=== PATIENT | female | born 1975 | race Caucasian/White ===

== ENCOUNTER 2018-03-23 05:12 | Emergency (ER) | payer OTHER ==
[~2018-03-23] VITALS: Ht 154.9 cm; Wt 63.5 kg
[2018-03-23 05:17] VITALS: BP 131/87
--- NOTE | 2018-03-23 05:17 | ED.ADGEN ---
Past History Past Medical History: No Pertinent History, Cancer, DVT Past Surgical History: No Surgical History Smoking: Less than 1pk/day Alcohol Use: Occasionally Drug Use: None Adult General Chief Complaint Chief Complaint ".. I ve been vomiting...".. " It started after a cheese enchilada,,, I did have an alcohol drink last night,,, and I ve been vomiting ever since..." HPI HPI Patient is a 43 year old female who presents with above hx and complaints of vomiting for past day after eating [place] food. Pt. denies and other diet changes or exposures. Pt. denies any travel or specific ill contacts. Months ago pt. reduced her intake of meats. Pt. also stopped smoking. Pt. has schedule apt. 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 Pt. has generalized abd. pain from dry heaving. No hx of diarrhea or dark stools. Pt. normally follows at [facility]. The is a family hx of gallbladder dz that required surgery with her mother at her current age. Review of Systems Review of Systems Constitutional: Denies fever or chills [] Eyes: Denies change in visual acuity, redness, or eye pain [] HENT: Denies nasal congestion or sore throat [] Respiratory: Denies cough or shortness of breath [] Cardiovascular: No additional information not addressed in HPI [] GI: Complains of abdominal pain, nausea, vomiting,. Denies bloody stools or diarrhea [] : Denies dysuria or hematuria [] Musculoskeletal: Denies back pain or joint pain [] Integument: Denies rash or skin lesions [] Neurologic: Denies headache, focal weakness or sensory changes [] Endocrine: Denies polyuria or polydipsia [] All other systems were reviewed and found to be within normal limits, except as documented in this note. Family History Family History Gallbladder dz Current Medications Current Medications Current Medications Medications (Trade) Dose Ordered Sig/Reed Start Time Stop Time Status Last Admin Dose Admin Famotidine (Pepcid Vial) 20 mg 1X ONCE 03/23/18 06:00 03/23/18 06:01 DC 03/23/18 06:00 20 MG Lactated Ringer's 1,000 ml @ 1,000 mls/hr Q1H 03/23/18 06:00 03/23/18 06:59 DC 03/23/18 06:00 1,000 MLS/HR Magnesium Hydroxide (Milk Of Magnesia) 2,400 mg 1X ONCE 03/23/18 06:30 03/23/18 06:31 DC Ondansetron HCl (Zofran) 8 mg 1X ONCE 03/23/18 06:30 03/23/18 06:31 DC 03/23/18 06:20 4 MG See Nursing for home meds Allergies Allergies Allergies Coded Allergies Type Severity Reaction Last Updated Verified Erythromycin Base Allergy 10/31/13 Yes codeine Allergy 10/31/13 Yes Physical Exam Physical Exam Constitutional: Well developed, well nourished, in acute distress, non-toxic appearance. [] HENT: Normocephalic, atraumatic, bilateral external ears normal, oropharynx moist, no oral exudates, nose normal. [] Eyes: PERRLA, EOMI, conjunctiva normal, no discharge. [] Neck: Normal range of motion, no tenderness, supple, no stridor. [] Cardiovascular:Heart rate regular rhythm, no murmur [] Lungs & Thorax: Bilateral breath sounds equal at apex on auscultation [] Abdomen: Bowel sounds decreased, soft, generalized tenderness, no masses, no pulsatile masses. Declines rectal and pelvic exam at this time- actively vomiting. There was some rebound to right upper and epigastric areas Skin: Warm, dry, no erythema, no rash. [] Back: No tenderness, no CVA tenderness. [] Extremities: No tenderness, no cyanosis, no clubbing, ROM intact, no edema. [] Neurologic: Alert and oriented X 3, normal motor function, normal sensory function, no focal deficits noted. [] Psychologic: Affect Anxious, judgement normal, mood normal. [] Current Patient Data Vital Signs Vital Signs Date Time Temp Pulse Resp B/P (MAP) Pulse Ox O2 Delivery O2 Flow Rate FiO2 03/23/18 05:17 97.9 51 16 99 Room Air Lab Results Laboratory Tests Test 03/23/18 05:29 White Blood Count 8.9 x10^3/uL (4.0-11.0) Red Blood Count 5.06 x10^6/uL (3.50-5.40) Hemoglobin 14.6 g/dL (12.0-15.5) Hematocrit 43.7 % (36.0-47.0) Mean Corpuscular Volume 86 fL (79-100) Mean Corpuscular Hemoglobin 29 pg (25-35) Mean Corpuscular Hemoglobin Concent 33 g/dL (31-37) Red Cell Distribution Width 13.6 % (11.5-14.5) Platelet Count 272 x10^3/uL (140-400) Neutrophils (%) (Auto) 64 % (31-73) Lymphocytes (%) (Auto) 26 % (24-48) Monocytes (%) (Auto) 8 % (0-9) Eosinophils (%) (Auto) 2 % (0-3) Basophils (%) (Auto) 1 % (0-3) Neutrophils # (Auto) 5.7 x10^3uL (1.8-7.7) Lymphocytes # (Auto) 2.3 x10^3/uL (1.0-4.8) Monocytes # (Auto) 0.7 x10^3/uL (0.0-1.1) Eosinophils # (Auto) 0.1 x10^3/uL (0.0-0.7) Basophils # (Auto) 0.1 x10^3/uL (0.0-0.2) Prothrombin Time 10.2 SEC (9.4-11.4) Prothrombin Time INR 1.0 (0.9-1.1) PTT 26 SEC (23-33) Urine Collection Type Unknown Urine Color Yellow Urine Clarity Clear Urine pH 8.5 Urine Specific [place] 1.015 Urine Protein Neg (NEG-TRACE) Urine Glucose (UA) Neg mg/dL (NEG) Urine Ketones (Stick) Neg mg/dL (NEG) Urine Blood Neg (NEG) Urine Nitrite Neg (NEG) Urine Bilirubin Neg (NEG) Urine Urobilinogen Dipstick 0.2 mg/dL (0.2 mg/dL) Urine Leukocyte Esterase Neg (NEG) Urine RBC 0 /HPF (0-2) Urine WBC Rare /HPF (0-4) Urine Squamous Epithelial Cells Mod /LPF Urine Bacteria 0 /HPF (0-FEW) Sodium Level 141 mmol/L (136-145) Potassium Level 3.9 mmol/L (3.5-5.1) Chloride Level 104 mmol/L (98-107) Carbon Dioxide Level 28 mmol/L (21-32) Anion Gap 9 (6-14) Blood Urea Nitrogen 8 mg/dL (7-20) Creatinine 1.0 mg/dL (0.6-1.0) Estimated GFR (Cockcroft-Gault) 61.1 Glucose Level 93 mg/dL (70-99) Calcium Level 9.3 mg/dL (8.5-10.1) Total Bilirubin 0.5 mg/dL (0.2-1.0) Direct Bilirubin 0.1 mg/dL (0.0-0.2) Aspartate Amino Transferase (AST) 16 U/L (15-37) Alanine Aminotransferase (ALT) 23 U/L (14-59) Alkaline Phosphatase 55 U/L (46-116) Troponin I Quantitative < 0.017 ng/mL (0-0.055) Total Protein 7.1 g/dL (6.4-8.2) Albumin 4.0 g/dL (3.4-5.0) Lipase 119 U/L (73-393) EKG EKG [] Radiology/Procedures Radiology/Procedures Abdomen shows no acute cardiopulmonary findings. No free air under diaphragm. Does have increased stool throughout the colon. Nonspecific bowel gas pattern.[] Course & Med Decision Making Course & Med Decision Making Pertinent Labs and Imaging studies reviewed. (See chart for details) Patient to remain on a clear fluid diet for the next 48 hours. No solids. No milk products. Allow bowel rest. Patient take Zantac 50 mg twice a day. Patient take Zofran 8 mg 4 times a day as needed for nausea and vomiting. Patient take [id number] Tylenol and ibuprofen for discomfort. Patient to follow-up primary care. May need further evaluation for biliary colic. Patient return if any concerns. Noted at patient report marked relief of pain and symptoms of nausea. [] Final Impression Final Impression 1. Nausea and vomiting 2. Gastritis 3. Biliary colic 4. History given of cervical dysplasia[] Dragon Disclaimer Dragon Disclaimer This electronic medical record was generated, in whole or in part, using a voice recognition dictation system. IRA BROWNLEE MD Mar 23, 2018 05:17
[2018-03-23 05:50] LABS: BASO # 0.1 x10^3/uL (0.0-0.2); BASO % 1 % (0-3); EOS # 0.1 x10^3/uL (0.0-0.7); EOS % 2 % (0-3); HEMATOCRIT 43.7 % (36.0-47.0); HEMOGLOBIN 14.6 g/dL (12.0-15.5); LYMPH # 2.3 x10^3/uL (1.0-4.8); LYMPH % 26 % (24-48); MEAN CORPUSCULAR HEMOGLOBIN 29 pg (25-35); MEAN CORPUSCULAR HGB CONC 33 g/dL (31-37); MEAN CORPUSCULAR VOLUME 86 fL (79-100); MONO # 0.7 x10^3/uL (0.0-1.1); MONO % 8 % (0-9); NEUT # 5.7 x10^3uL (1.8-7.7); NEUT % 64 % (31-73); PLATELET COUNT 272 x10^3/uL (140-400); RED BLOOD COUNT 5.06 x10^6/uL (3.50-5.40); RED CELL DISTRIBUTION WIDTH 13.6 % (11.5-14.5); WHITE BLOOD COUNT 8.9 x10^3/uL (4.0-11.0)
[2018-03-23 05:54] LABS: BACTERIA,URINE 0 /HPF (0-FEW); BILIRUBIN,URINE NEG (NEG); CLARITY,URINE CLEAR; COLOR,URINE YELLOW; GLUCOSE,URINE NEG (NEG); NITRITE,URINE NEG (NEG); RBC,URINE 0 /HPF (0-2); SQUAMOUS EPITHELIAL CELL,UR MOD /LPF; UROBILINOGEN,URINE 0.2 mg/dL (0.2 mg/dL); WBC,URINE RARE /HPF (0-4)
[2018-03-23] MEDS ORDERED: ONDANSETRON PF 4 MG/2 ML VIAL. IV ONE ×2 (06:00→06:30)
[2018-03-23] MEDS ORDERED: FAMOTIDINE 20 MG/2 ML VIAL IVP ONE (06:00)
[2018-03-23] MEDS ORDERED: IV RINGERS SOLUTION,LACTATED 1,000 ML IV SCH (06:00)
[2018-03-23 06:04] LABS: CALCIUM 9.3 mg/dL (8.5-10.1); DIRECT BILIRUBIN 0.1 mg/dL (0.0-0.2); GFR 61.1; POTASSIUM 3.9 mmol/L (3.5-5.1); TOTAL BILIRUBIN 0.5 mg/dL (0.2-1.0); TOTAL PROTEIN 7.1 g/dL (6.4-8.2)
[2018-03-23] MEDS ORDERED: MAGNESIUM HYDROXIDE 2,400 MG/30 ML ORAL.SUSP. PO ONE (06:30)
--- NOTE | 2018-03-23 07:41 | RAD ---
Acute abdomen series with chest, 3 views, 03/23/2018: HISTORY: Nausea and vomiting with cramping There is a moderate amount of stool in the colon. Gas is present in large and small bowel in a nonspecific pattern. No free air is seen in the abdomen. There is no evidence organomegaly. A lower pelvic calcification on the left is probably a phlebolith. The heart size is normal. The lungs are clear. There is no evidence of pleural fluid. IMPRESSION: No acute abdominal abnormality is detected. Electronically signed by: Dez Huynh MD (03/23/2018 7:39 AM) [facility]
== END 2018-03-23 06:35 | disposition home or self-care (01) ==
LOC: ER 05:12
DX: K29.70 Gastritis, unspecified, without bleeding (principal); K80.50 Calculus of bile duct without cholangitis or cholecystitis without obstruction; K59.00 Constipation, unspecified; F17.200 Nicotine dependence, unspecified, uncomplicated; Z88.1 Allergy status to other antibiotic agents; Z88.5 Allergy status to narcotic agent
CPT/HCPCS: 36415; 74022; 80048; 80076; 81001; 83690; 84484; 85025; 85610; 85730; 96361; 96374; 96375; 99284; J2405; J7120; S0028

== ENCOUNTER 2018-04-23 00:26 | Emergency (ER) | payer OTHER ==
--- NOTE | 2018-04-23 00:29 | ED.ADGEN ---
Past History Past Medical History: No Pertinent History, Cancer, DVT, Other Past Surgical History: Other Smoking: Less than 1pk/day Alcohol Use: None Drug Use: None Adult General Chief Complaint Chief Complaint " I got heart burn that will not quit.. and some headache... and dizzy...nausea.. "... " I just had a cone bx of my cervix on Apr.14..for cancer of cervix.. .. ".. " I have just not bounced back like I should...".." I usually work out 5 x week.. but I was on the treadmill and got really weak and dizzy...." HPI HPI Patient is a 43 year old female who presents with above hx and complaints of nausea, malaise, myalgia, dizziness, cephalgia, chest tightness, neck pain and discomfort. She recently underwent cone biopsy of cervix for abnormal PAP. Patient denies any changes in meds. Patient denies any travel or specific ill contacts. Patient normally healthy. No previous history of cardiac disease. No previous history of hypertension. Patient has been following Dr. Cuellar primary and Dr. Antonio [facility]. . Review of Systems Review of Systems Constitutional: Denies fever or chills [] Eyes: Denies change in visual acuity, redness, or eye pain [] HENT: Denies nasal congestion or sore throat [] Respiratory: Dyspnea Cardiovascular: No additional information not addressed in HPI [] GI: Epigastric abdominal pain, nausea. Denies vomiting, bloody stools or diarrhea []Constipation : Denies dysuria or hematuria [] Musculoskeletal: Denies back pain or joint pain [] Integument: Denies rash or skin lesions [] Neurologic: Hx. headache, generalized weakness Endocrine: Denies polyuria or polydipsia [] All other systems were reviewed and found to be within normal limits, except as documented in this note. Family History Family History Non-contributory Current Medications Current Medications Current Medications Medications (Trade) Dose Ordered Sig/Reed Start Time Stop Time Status Last Admin Dose Admin Aspirin (Children'S Aspirin) 324 mg 1X ONCE 04/23/18 02:15 04/23/18 03:31 DC 04/23/18 02:38 324 MG Famotidine (Pepcid) 20 mg 1X ONCE 04/23/18 02:15 04/23/18 03:31 DC 04/23/18 02:36 20 MG Lactated Ringer's 1,000 ml @ 1,000 mls/hr Q1H 04/23/18 02:10 04/23/18 03:30 DC 04/23/18 02:39 1,000 MLS/HR Magnesium Hydroxide (Milk Of Magnesia) 2,400 mg 1X ONCE 04/23/18 02:15 04/23/18 03:30 DC 04/23/18 04:51 2,400 MG Oxycodone/ Acetaminophen (Percocet 5/325) 2 tab 1X ONCE 04/23/18 03:30 04/23/18 03:31 DC 04/23/18 04:54 2 TAB See Nursing for home meds Allergies Allergies Allergies Coded Allergies Type Severity Reaction Last Updated Verified Erythromycin Base Allergy 10/31/13 Yes codeine Allergy 10/31/13 Yes Physical Exam Physical Exam Constitutional: Well developed, well nourished, in moderately acute distress, non-toxic appearance. [] HENT: Normocephalic, atraumatic, bilateral external ears normal, oropharynx moist, no oral exudates, nose normal. Eyes: PERRLA, EOMI, conjunctiva normal, no discharge. [] Neck: Normal range of motion, , supple, no stridor. []Mid line cervical neck tenderness. Cardiovascular:Bradycardia Heart rate regular rhythm, no murmur [] Lungs & Thorax: Bilateral breath sounds clear to auscultation [] Abdomen: Bowel sounds normal, soft, epigastric tenderness, no masses, no pulsatile masses. [] Distended. Skin: Warm, dry, no erythema, no rash. [] Back: No tenderness, no CVA tenderness. [] Extremities: No tenderness, no cyanosis, no clubbing, ROM intact, no edema. [] No cording noted. Neurologic: Alert and oriented X 3, normal motor function, normal sensory function, no focal deficits noted. [] Psychologic: Affect anxious, judgement normal, mood normal. [] Current Patient Data Vital Signs Vital Signs Date Time Temp Pulse Resp B/P (MAP) Pulse Ox O2 Delivery O2 Flow Rate FiO2 04/23/18 04:54 18 99 Room Air Lab Results Laboratory Tests Test 04/23/18 01:34 04/23/18 01:50 8/10/18 02:25 Urine Collection Type Unknown Urine Color Yellow Urine Clarity Clear Urine pH 6.0 Urine Specific [place] <=1.005 Urine Protein Neg (NEG-TRACE) Urine Glucose (UA) Neg mg/dL (NEG) Urine Ketones (Stick) Neg mg/dL (NEG) Urine Blood Neg (NEG) Urine Nitrite Neg (NEG) Urine Bilirubin Neg (NEG) Urine Urobilinogen Dipstick 0.2 mg/dL (0.2 mg/dL) Urine Leukocyte Esterase Neg (NEG) Urine RBC 0 /HPF (0-2) Urine WBC Rare /HPF (0-4) Urine Squamous Epithelial Cells None /LPF Urine Bacteria 0 /HPF (0-FEW) Urine Test Negative (NEG) Urine Opiates Screen Neg (NEG) Urine Methadone Screen Neg (NEG) Urine Barbiturates Neg (NEG) Urine Phencyclidine Screen Neg (NEG) Urine Amphetamine/Methamphetamine Neg (NEG) Urine Benzodiazepines Screen Neg (NEG) Urine Cocaine Screen Neg (NEG) Urine Cannabinoids Screen Neg (NEG) Urine Ethyl Alcohol Neg (NEG) White Blood Count 10.4 x10^3/uL (4.0-11.0) Red Blood Count 4.81 x10^6/uL (3.50-5.40) Hemoglobin 14.0 g/dL (12.0-15.5) Hematocrit 40.7 % (36.0-47.0) Mean Corpuscular Volume 84 fL (79-100) Mean Corpuscular Hemoglobin 29 pg (25-35) Mean Corpuscular Hemoglobin Concent 34 g/dL (31-37) Red Cell Distribution Width 13.1 % (11.5-14.5) Platelet Count 241 x10^3/uL (140-400) Neutrophils (%) (Auto) 55 % (31-73) Lymphocytes (%) (Auto) 29 % (24-48) Monocytes (%) (Auto) 12 % (0-9) H Eosinophils (%) (Auto) 4 % (0-3) H Basophils (%) (Auto) 1 % (0-3) Neutrophils # (Auto) 5.6 x10^3uL (1.8-7.7) Lymphocytes # (Auto) 3.0 x10^3/uL (1.0-4.8) Monocytes # (Auto) 1.2 x10^3/uL (0.0-1.1) H Eosinophils # (Auto) 0.4 x10^3/uL (0.0-0.7) Basophils # (Auto) 0.1 x10^3/uL (0.0-0.2) Sodium Level 138 mmol/L (136-145) Potassium Level 3.7 mmol/L (3.5-5.1) Chloride Level 103 mmol/L (98-107) Carbon Dioxide Level 27 mmol/L (21-32) Anion Gap 8 (6-14) Blood Urea Nitrogen 10 mg/dL (7-20) Creatinine 0.9 mg/dL (0.6-1.0) Estimated GFR (Cockcroft-Gault) 69.0 Glucose Level 86 mg/dL (70-99) Calcium Level 9.4 mg/dL (8.5-10.1) Magnesium Level 2.1 mg/dL (1.8-2.4) Total Bilirubin 0.3 mg/dL (0.2-1.0) Direct Bilirubin 0.1 mg/dL (0.0-0.2) Aspartate Amino Transferase (AST) 22 U/L (15-37) Alanine Aminotransferase (ALT) 40 U/L (14-59) Alkaline Phosphatase 59 U/L (46-116) Creatine Kinase 27 U/L (26-192) Creatine Kinase MB (Mass) < 0.5 ng/mL (0.0-3.6) Creatine Kinase MB Relative Index 1.9 % (0-4) Troponin I Quantitative < 0.017 ng/mL (0-0.055) [id number] Natriuretic Peptide 67 pg/mL (0-124) Total Protein 7.6 g/dL (6.4-8.2) Albumin 3.8 g/dL (3.4-5.0) Lipase 151 U/L (73-393) Prothrombin Time 10.1 SEC (9.4-11.4) Prothrombin Time INR 1.0 (0.9-1.1) PTT 26 SEC (23-33) D-Dimer (Hedy) 0.46 mg/L (0.00-0.50) EKG EKG My interpretation of EKG shows sinus rate of 64, non-specifc anterolateral changes. [] My interpretation of second EKG shows a sinus bradycardia 54 bpm. Some nonspecific car onto her changes anterior septal region. But no findings acute STEMI with contralateral changes. Radiology/Procedures Radiology/Procedures Interpretation CT of head shows no shift, mass, edema, bleed, or fracture. CT neck shows some mild degenerative changes. Degenerative joint and disc changes particularly in C4 and 5. I interpretation of chest x-ray and abd. films shows no acute cardiopulmonary findings. No free air in the diaphragm. Abdomen film shows nonspecific bowel gas pattern. Does have increased stool throughout the abdomen. [] Course & Med Decision Making Course & Med Decision Making Pertinent Labs and Imaging studies reviewed. (See chart for details). Discussed options of continue eval. Pt. declines admit at this time. Will follow up with primary and review ED labs and x-rays. Consider EGD and Out pt. stress testing. Zantac 150 bid. Must follow up . Return if any concerns. Keep follow up with [facility] and Primary [] Final Impression Final Impression 1. Viral syndrome 2. Dizzy 3. Bradycardia 4. Constipation 5. GERD- Complaints 6. Near Syncope 7. Atypical Chest pain/ discomfort [] Dragon Disclaimer Dragon Disclaimer This electronic medical record was generated, in whole or in part, using a voice recognition dictation system. IRA BROWNLEE MD Apr 23, 2018 00:28
[2018-04-23] MEDS ORDERED: IV RINGERS SOLUTION,LACTATED 1,000 ML IV SCH (02:10)
[2018-04-23] MEDS ORDERED: MAGNESIUM HYDROXIDE 2,400 MG/30 ML ORAL.SUSP. PO ONE (02:15)
[2018-04-23] MEDS ORDERED: FAMOTIDINE 20 MG TABLET PO ONE (02:15)
[2018-04-23] MEDS ORDERED: ASPIRIN 81 MG TAB.CHEW PO ONE (02:15)
[2018-04-23 02:27] LABS: BASO # 0.1 x10^3/uL (0.0-0.2); BASO % 1 % (0-3); EOS # 0.4 x10^3/uL (0.0-0.7); EOS % 4 % (0-3); HEMATOCRIT 40.7 % (36.0-47.0); LYMPH % 29 % (24-48); MEAN CORPUSCULAR HEMOGLOBIN 29 pg (25-35); MEAN CORPUSCULAR HGB CONC 34 g/dL (31-37); MEAN CORPUSCULAR VOLUME 84 fL (79-100); MONO # 1.2 x10^3/uL (0.0-1.1); MONO % 12 % (0-9); NEUT # 5.6 x10^3uL (1.8-7.7); NEUT % 55 % (31-73); PLATELET COUNT 241 x10^3/uL (140-400); RED BLOOD COUNT 4.81 x10^6/uL (3.50-5.40); RED CELL DISTRIBUTION WIDTH 13.1 % (11.5-14.5); WHITE BLOOD COUNT 10.4 x10^3/uL (4.0-11.0)
[2018-04-23 02:32] LABS: BARBITURATES NEG (NEG); BENZODIAZEPINES NEG (NEG); CANNABINOIDS NEG (NEG); COCAINE NEG (NEG); METHADONE NEG (NEG); OPIATES NEG (NEG); PHENCYCLIDINE NEG (NEG)
[2018-04-23 02:35] LABS: BACTERIA,URINE 0 /HPF (0-FEW); BILIRUBIN,URINE NEG (NEG); CLARITY,URINE CLEAR; COLOR,URINE YELLOW; GLUCOSE,URINE NEG (NEG); NITRITE,URINE NEG (NEG); RBC,URINE 0 /HPF (0-2); U PREG PATIENT NEGATIVE (NEG); UROBILINOGEN,URINE 0.2 mg/dL (0.2 mg/dL); WBC,URINE RARE /HPF (0-4)
[2018-04-23 02:39] LABS: AMPHETAMINE/METHAMPHETAMINE NEG (NEG)
[2018-04-23 02:41] LABS: ALBUMIN 3.8 g/dL (3.4-5.0); ALK PHOS 59 U/L (46-116); ALT (SGPT) 40 U/L (14-59); ANION GAP 8 (6-14); AST (SGOT) 22 U/L (15-37); BLOOD UREA NITROGEN 10 mg/dL (7-20); CALCIUM 9.4 mg/dL (8.5-10.1); CARBON DIOXIDE 27 mmol/L (21-32); CHLORIDE 103 mmol/L (98-107); CREATININE 0.9 mg/dL (0.6-1.0); DIRECT BILIRUBIN 0.1 mg/dL (0.0-0.2); GLUCOSE 86 mg/dL (70-99); LIPASE 151 U/L (73-393); MAGNESIUM 2.1 mg/dL (1.8-2.4); POTASSIUM 3.7 mmol/L (3.5-5.1); SODIUM 138 mmol/L (136-145); TOTAL BILIRUBIN 0.3 mg/dL (0.2-1.0); TOTAL PROTEIN 7.6 g/dL (6.4-8.2)
[2018-04-23] MEDS ORDERED: oxyCODONE/APAP 5/325 1 TAB TABLET PO ONE (03:30)
[2018-04-23] MEDS ORDERED: ONDA8TAB12 PO (04:23)
[2018-04-23] MEDS ORDERED: OXYC-323 PO (04:23)
[2018-04-23] MEDS ORDERED: RANI150T21 PO (04:23)
--- NOTE | 2018-04-23 04:48 | RAD ---
EXAM: 1. CT HEAD WITHOUT CONTRAST. 2. CT CERVICAL SPINE WITHOUT CONTRAST. HISTORY: Headache. Fall. TECHNIQUE: Computed tomography of the head and cervical spine was performed without intravenous contrast. COMPARISON: None. FINDINGS: There is no intracranial hemorrhage. Munoz-white differentiation is preserved. The ventricles are normal in size and position. The visualized paranasal sinuses appear clear. The orbits are unremarkable. The temporal bones are unremarkable. The calvarium reveals no suspicious lesions. Reversal of the cervical lordosis is likely positional. The craniocervical junction is unremarkable. No fractures are identified. Intervertebral disc heights are maintained. There is no prevertebral soft tissue swelling. There is a small posterior disc bulge at C4-5. There is no central canal stenosis or neural foraminal stenosis. IMPRESSION: 1. No acute intracranial findings. 2. No cervical fracture or malalignment. *One or more of the following individualized dose reduction techniques were utilized for this examination: 1. Automated exposure control. 2. Adjustment of the mA and/or kV according to patient size. 3. Use of iterative reconstruction technique. Electronically signed by: Veronica Montes De Oca MD (04/23/2018 4:44 AM) [facility]
--- NOTE | 2018-04-23 04:59 | RAD ---
EXAM: CHEST 1 VIEW. HISTORY: Chest pain. COMPARISON: None. FINDINGS: A frontal view of the chest is obtained. There are no confluent infiltrates. There is no pneumothorax or pleural effusion. The heart is not enlarged. IMPRESSION: 1. No confluent infiltrates. Electronically signed by: Veronica Montes De Oca MD (04/23/2018 4:56 AM) [facility]
[2018-04-23 05:28] VITALS: BP 116/60
[2018-04-23 13:22] LABS: THYROID STIM HORMONE (TSH) 1.678 uIU/mL (0.358-3.740)
--- NOTE | 2018-04-23 22:32 | EKG ---
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
--- NOTE | 2018-04-24 06:28 | EKG ---
[address] [address] Test Date: 2018-04-23 Test Time: 01:30:58 Pat Name: RYAN VAZQUEZ Department: Room: Gender: F Resolution Manager: : 1975 Requested By: IRA BROWNLEE Order Number: [id number] Reading MD: Measurements Intervals [place] Rate: 64 P: 55 ME: 176 QRS: 84 QRSD: 82 T: 59 QT: 422 QTc: 435 Interpretive Statements SINUS RHYTHM LOW LIMB LEAD VOLTAGE QRS(T) CONTOUR ABNORMALITY CONSIDER ANTEROLATERAL MYOCARDIAL DAMAGE POSSIBLY ABNORMAL ECG RI6.01 Unconfirmed report No previous ECG available for comparison
== END 2018-04-23 05:35 | disposition home or self-care (01) ==
LOC: ER 00:26
DX: R42 Dizziness and giddiness (principal); B34.9 Viral infection, unspecified; K59.00 Constipation, unspecified; K21.9 Gastro-esophageal reflux disease without esophagitis; R55 Syncope and collapse; R07.89 Other chest pain; R00.1 Bradycardia, unspecified; F17.200 Nicotine dependence, unspecified, uncomplicated; Z86.718 Personal history of other venous thrombosis and embolism; Z88.1 Allergy status to other antibiotic agents; Z88.5 Allergy status to narcotic agent
CPT/HCPCS: 36415; 70450; 71046; 72125; 80048; 80061; 80076; 80307; 81001; 81025; 82553; 83690; 83735; 83880; 84443; 84484; 85025; 85379; 85610; 85730; 93005; 96360; 96361; 99285; J7120; G0479

== ENCOUNTER 2020-01-07 05:37 | Emergency (ER) | payer OTHER ==
[~2020-01-07] VITALS: Ht 154.9 cm; Wt 73.4 kg
[~2020-01-07 05:37] MED LIST: ONDA8TAB12 PO; OXYC1TAB15 PO; RANI-376 PO
--- NOTE | 2020-01-07 05:55 | PHYS DOC ---
Past History Past Medical History: No Pertinent History, Cancer, DVT, GERD, Other Past Surgical History: Other Smoking: Less than 1pk/day Alcohol Use: Rarely Drug Use: None General Adult EDM: Chief Complaint: NAUSEA/VOMITING/DIARRHEA HPI: HPI: ".. We ate Mc D last night.. about 9.. my ate the same thing.. .. but he did not get sick.. but since mid night.. I ve been really sick.. vomiting.. and diarrhea.. I vomit.. then I have a stool... then I vomit.. .then I have a stool..... " Patient is a 45 year old female who presents with above hx and complaints of vomiting 4 x and Diarrhea x 5 since mid night. Patient reportedly ate Rashid's at approximate 2100 hours. ate the same meal but did not get sick. Patient denies any travel outside the [place] area. Patient denies any history of trauma. Patient denies any specific ill contacts. No history immunosuppression. 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 Patient does smoke. Patient only follows with Dr. Fischer. Patient did not get flu vaccination this season. Review of Systems: Review of Systems: Constitutional: Denies fever or chills Eyes: Denies change in visual acuity HENT: Denies nasal congestion or sore throat Respiratory: Denies cough or shortness of breath Cardiovascular: Denies chest pain or edema GI: Complaints of abdominal pain, nausea, vomiting, and diarrhea : Denies dysuria Musculoskeletal: Denies back pain or joint pain Integument: Denies rash Neurologic: Denies headache, focal weakness or sensory changes Endocrine: Denies polyuria or polydipsia Lymphatic: Denies swollen glands Psychiatric: Denies depression or anxiety Heart Score: HEART Score for Chest Pain: HEART Score for Chest Pain Response (Comments) Value History Slighlty/Non-Suspicious 0 Total 0 Risk Factors: Risk Factors: DM, Current or recent (<one month) smoker, HTN, HLP, family history of CAD, obesity. Risk Scores: Score 0 - 3: 2.5% MACE over next 6 weeks - Discharge Home Score 4 - 6: 20.3% MACE over next 6 weeks - Admit for Clinical Observation Score 7 - 10: 72.7% MACE over next 6 weeks - Early Invasive Strategies Family History: Family History: Noncontributory to presentation Current Medications: Current Meds: See nursing for home meds Allergies: Allergies: Allergies Coded Allergies Type Severity Reaction Last Updated Verified Erythromycin Base Allergy 10/31/13 Yes codeine Allergy 10/31/13 Yes Physical Exam: PE: Constitutional: Moderate acute distress, non-toxic appearance. [] HENT: Normocephalic, atraumatic, bilateral external ears normal, oropharynx dry, no oral exudates, nose normal. [] Eyes: PERRLA, EOMI, conjunctiva normal, no discharge. [] Neck: Normal range of motion, no tenderness, supple, no stridor. [] Cardiovascular: Bradycardia heart rate regular rhythm, no murmur [] Lungs & Thorax: Bilateral breath sounds equal at apex with few scattered wheezes on auscultation [] Abdomen: Bowel sounds hyperactive l, soft, generalized tenderness, no masses, no pulsatile masses. [] No focal areas or rebound Skin: Warm, dry, no erythema, no rash. [] Back: No tenderness, no CVA tenderness. [] Extremities: No tenderness, no cyanosis, no clubbing, ROM intact, no edema. [] No psoas sign. Neurologic: Alert and oriented X 3, normal motor function, normal sensory function, no focal deficits noted. [] Psychologic: Affect anxious, judgement normal, mood normal. [] EKG: EKG: My interpretation EKG shows a sinus rhythm at 63 bpm. Low voltage. Slightly prolonged QT interval at 500 ms QTc interval is 515 ms. No findings of acute STEMI with contralateral changes. [] Radiology/Procedures: Radiology/Procedures: [][address] [address] IMAGING REPORT Signed PATIENT: RYAN VAZQUEZ ACCOUNT: [id number] : 1975 LOCATION: ER AGE: 45 SEX: F EXAM STATUS: REG ER ORD. PHYSICIAN: IRA BROWNLEE MD REASON: nv,cp PROCEDURE: ACUTE ABDOMEN SERIES INDICATION: Abdomen pain COMPARISON: March 23, 2018 IMPRESSION: 3 views of chest and abdomen obtained. No focal airspace consolidation to suggest pneumonia. Cardiac silhouette is similar prior. Air scattered throughout the large and small bowel in a grossly nonobstructive pattern. Couple of mildly prominent air-filled loops of small bowel in the left-sided the abdomen measuring up to 28 mm. Electronically signed by: Julian Gonzalez MD (01/07/2020 7:32 AM) [id number] DICTATED AND SIGNED BY: JULIAN GONZALEZ MD DATE: 01/07/20 0732 CC: IRA BROWNLEE MD; SRAVAN FISCHER MD ~ Course & Med Decision Making: Course & Med Decision Making Pertinent Labs and Imaging studies reviewed. (See chart for details) Patient stay on a clear fluid diet only for the next 48 hours. No solids or milk products. Take Tylenol and ibuprofen as needed for pain or discomfort. Take Zofran 8 mg up to 4 times a day for active vomiting. May take yjqa-fvi-ykvaivt Pepto-Bismol for diarrhea episodes. Follow-up with Dr. Fischer. [] Impression: 1. Acute gastroenteritis 2. Bronchitis 3. Tobacco use 4. Dehydration Dragon Disclaimer: Mercedes Disclaimer: This electronic medical record was generated, in whole or in part, using a voice recognition dictation system. Departure Departure: Disposition: 01 HOME/RESIDENCE PRIOR TO ADM Condition: STABLE Referrals: SRAVAN FISCHER MD (PCP) Scripts Ondansetron Hcl (ZOFRAN) 8 Mg Tablet 8 MG PO QIDPRN PRN for active vomiting, #30 BOTTLE Prov: IRA BROWNLEE MD 01/07/20 Dragon Disclaimer This chart was dictated in whole or in part using Voice Recognition software in a busy, high-work load, and often noisy Emergency Department environment. It may contain unintended and wholly unrecognized errors or omissions. IRA BROWNLEE MD Jan 07, 2020 05:55
--- NOTE | 2020-01-07 06:17 | EKG ---
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
[2020-01-07] MEDS ORDERED: MORPHINE SULFATE 10 MG/ML SYRINGE. SQ ONE (06:30)
[2020-01-07] MEDS ORDERED: ONDANSETRON PF 4 MG/2 ML VIAL. IVP ONE (06:30)
[2020-01-07] MEDS ORDERED: IV RINGERS SOLUTION,LACTATED 1,000 ML IV SCH (06:30)
[2020-01-07 06:58] LABS: BASO # 0.1 x10^3/uL (0.0-0.2); BASO % 1 % (0-3); EOS # 0.3 x10^3/uL (0.0-0.7); EOS % 3 % (0-3); HEMATOCRIT 41.5 % (36.0-47.0); HEMOGLOBIN 13.7 g/dL (12.0-15.5); LYMPH # 1.5 x10^3/uL (1.0-4.8); LYMPH % 15 % (24-48); MEAN CORPUSCULAR HEMOGLOBIN 28 pg (25-35); MEAN CORPUSCULAR HGB CONC 33 g/dL (31-37); MEAN CORPUSCULAR VOLUME 83 fL (79-100); MONO # 0.6 x10^3/uL (0.0-1.1); MONO % 6 % (0-9); NEUT # 7.8 x10^3uL (1.8-7.7); NEUT % 76 % (31-73); PLATELET COUNT 256 x10^3/uL (140-400); RED BLOOD COUNT 4.97 x10^6/uL (3.50-5.40); RED CELL DISTRIBUTION WIDTH 15.6 % (11.5-14.5); WHITE BLOOD COUNT 10.3 x10^3/uL (4.0-11.0)
--- NOTE | 2020-01-07 07:35 | RAD ---
INDICATION: Abdomen pain COMPARISON: March 23, 2018 IMPRESSION: 3 views of chest and abdomen obtained. No focal airspace consolidation to suggest pneumonia. Cardiac silhouette is similar prior. Air scattered throughout the large and small bowel in a grossly nonobstructive pattern. Couple of mildly prominent air-filled loops of small bowel in the left-sided the abdomen measuring up to 28 mm. Electronically signed by: Mumtaz Gonzalez MD (01/07/2020 7:32 AM) [id number]
[2020-01-07] MEDS ORDERED: ONDA8TAB9 PO (07:36)
[2020-01-07 07:46] LABS: GFR 60.5; POTASSIUM 3.7 mmol/L (3.5-5.1)
[2020-01-07 07:58] LABS: ALBUMIN 3.7 g/dL (3.4-5.0); DIRECT BILIRUBIN 0.1 mg/dL (0.0-0.2); TOTAL BILIRUBIN 0.2 mg/dL (0.2-1.0); TOTAL PROTEIN 6.8 g/dL (6.4-8.2)
[2020-01-07 08:18] VITALS: BP 140/80
== END 2020-01-07 08:40 | disposition home or self-care (01) ==
LOC: ER 05:37
DX: K52.9 Noninfective gastroenteritis and colitis, unspecified (principal); J40 Bronchitis, not specified as acute or chronic; E86.0 Dehydration; K21.9 Gastro-esophageal reflux disease without esophagitis; Z86.718 Personal history of other venous thrombosis and embolism; F17.200 Nicotine dependence, unspecified, uncomplicated; Z88.1 Allergy status to other antibiotic agents; Z88.5 Allergy status to narcotic agent
CPT/HCPCS: 36415; 74022; 80048; 80076; 82150; 82550; 83690; 83735; 83880; 84484; 84702; 85025; 85610; 85730; 86705; 86709; 86803; 87340; 93005; 96361; 96372; 96374; 99285; J2270; J2405; J7120

== ENCOUNTER 2021-02-04 10:04 | Emergency (ER) | payer OTHER ==
[~2021-02-04] VITALS: Ht 154.9 cm; Wt 71.2 kg
[~2021-02-04 10:04] MED LIST changes: +ONDA8TAB9 PO
--- NOTE | 2021-02-04 10:27 | PHYS DOC ---
Past History Past Medical History: No Pertinent History, Cancer, DVT, GERD, Other Past Surgical History: Other Additional Past Surgical Histo: CERVICAL CONE BX Smoking: Less than 1pk/day Alcohol Use: Rarely Drug Use: None General Adult EDM: Chief Complaint: MULTIPLE COMPLAINTS HPI: HPI: 46-year-old female presents with cough for the last 4 weeks. She states that she has a daily cough. Some days is worse than others. She gets some whitish to light yellow phlegm. This morning she coughed so hard it made her vomit. She has been taking svqy-cxa-iaitjxj allergy medication without relief. She is not vaccinated for COVID-19. She does not believe she has had any exposures. She has been cutting down her smoking and only has 1 pack a week. She denies fever or chills. Review of Systems: Review of Systems: Constitutional: Denies fever or chills Eyes: Denies change in visual acuity HENT: Denies nasal congestion or sore throat Respiratory: Cough without shortness of breath Cardiovascular: Denies chest pain or edema GI: Denies abdominal pain, nausea, vomiting, bloody stools or diarrhea : Denies dysuria Musculoskeletal: Denies back pain or joint pain Integument: Denies rash Neurologic: Denies headache, focal weakness or sensory changes Endocrine: Denies polyuria or polydipsia Lymphatic: Denies swollen glands Psychiatric: Denies depression or anxiety Current Medications: Current Meds: Current Medications Medications (Trade) Dose Ordered Sig/Reed Start Time Stop Time Status Last Admin Dose Admin Ondansetron HCl (Zofran) 4 mg 1X ONCE 02/04/21 10:30 02/04/21 10:31 Sodium Chloride 1,000 ml @ 1,000 mls/hr 1X ONCE 02/04/21 10:30 02/04/21 11:29 Allergies: Allergies: Allergies Coded Allergies Type Severity Reaction Last Updated Verified codeine Allergy Unknown 02/04/21 Yes erythromycin base Allergy Unknown 02/04/21 Yes Physical Exam: PE: Constitutional: Well developed, well nourished, no acute distress, non-toxic appearance. [] HENT: Normocephalic, atraumatic, bilateral external ears normal, oropharynx moist, no oral exudates, nose normal. [] Eyes: PERRLA, EOMI, conjunctiva normal, no discharge. [] Neck: Normal range of motion, no tenderness, supple, no stridor. [] Cardiovascular:Heart rate regular rhythm, no murmur [] Lungs & Thorax: Bilateral breath sounds clear to auscultation [] Abdomen: Bowel sounds normal, soft, no tenderness, no masses, no pulsatile masses. [] Skin: Warm, dry, no erythema, no rash. [] Back: No tenderness, no CVA tenderness. [] Extremities: No tenderness, no cyanosis, no clubbing, ROM intact, no edema. [] Neurologic: Alert and oriented X 3, normal motor function, normal sensory function, no focal deficits noted. [] Psychologic: Affect normal, judgement normal, mood normal. [] EKG: EKG: [] Radiology/Procedures: Radiology/Procedures: [] Impressions: Site ID: [id number] EXAMINATION: XR CHEST 1V. HISTORY: 46 years Female Reason: cough / Spl. Instructions: / History: . . COMPARISON: April 23, 2018. Findings: The lungs are clear. The heart size is normal. There is no effusion or pneumothorax. The mediastinum and vishnu appear unremarkable. Impression: Unremarkable study. Electronically signed by: Whitney Renner MD (02/04/2021 10:36 AM) [id number] DICTATED AND SIGNED BY: WHITNEY RENNER MD DATE: 02/04/21 1036 CC: KENDRA JHA DO; SRAVAN FISCHER MD ~MTH0 0 Heart Score: C/O Chest Pain: N/A Risk Factors: Risk Factors: DM, Current or recent (<one month) smoker, HTN, HLP, family history of CAD, obesity. Risk Scores: Score 0 - 3: 2.5% MACE over next 6 weeks - Discharge Home Score 4 - 6: 20.3% MACE over next 6 weeks - Admit for Clinical Observation Score 7 - 10: 72.7% MACE over next 6 weeks - Early Invasive Strategies Course & Med Decision Making: Course & Med Decision Making Pertinent Labs and Imaging studies reviewed. (See chart for details) The patient's labs are unremarkable. Her chest x-ray is negative for acute findings. This is likely due to the patient's smoking. She has never been diagnosed with COPD. I am going to give her a trial of Tessalon Perles as well as 4 days of prednisone. I have encouraged her to stop smoking completely. She is stable for discharge at this time. [] Mercedes Disclaimer: Mercedes Disclaimer: This electronic medical record was generated, in whole or in part, using a voice recognition dictation system. Departure Departure: Impression: Primary Impression: Chronic bronchitis Qualified Codes: J41.0 - Simple chronic bronchitis Disposition: HOME / SELF CARE / HOMELESS Condition: STABLE Referrals: SRAVAN FISCHER MD (PCP) Patient Instructions: Bronchitis, Kkub-go-Plmo Scripts Benzonatate (TESSALON PERLE) 100 Mg Capsule 1 CAP PO TID PRN for COUGH, #30 CAP Prov: KENDRA JHA DO 02/04/21 Prednisone (PREDNISONE) 10 Mg Tablet 50 MG PO DAILY for bronchitis for 4 Days, #20 TAB Prov: KENDRA JHA DO 02/04/21 KENDRA JHA DO February 04, 2021 10:27
[2021-02-04] MEDS ORDERED: IV NORMAL SALINE 1,000ML 1,000 ML IV ONE (10:30)
[2021-02-04] MEDS ORDERED: ONDANSETRON PF 4 MG/2 ML VIAL. IVP ONE (10:30)
--- NOTE | 2021-02-04 10:39 | RAD ---
Site ID: [id number] EXAMINATION: XR CHEST 1V. HISTORY: 46 years Female Reason: cough / Spl. Instructions: / History: . . COMPARISON: April 23, 2018. Findings: The lungs are clear. The heart size is normal. There is no effusion or pneumothorax. The mediastinum and vishnu appear unremarkable. Impression: Unremarkable study. Electronically signed by: Marin Renner MD (02/04/2021 10:36 AM) [id number]
[2021-02-04 10:54] LABS: BASO % 0 % (0-3); EOS # 0.6 x10^3/uL (0.0-0.7); EOS % 5 % (0-3); HEMATOCRIT 40.9 % (36.0-47.0); HEMOGLOBIN 13.5 g/dL (12.0-15.5); LYMPH # 1.8 x10^3/uL (1.0-4.8); LYMPH % 15 % (24-48); MEAN CORPUSCULAR HEMOGLOBIN 27 pg (25-35); MEAN CORPUSCULAR HGB CONC 33 g/dL (31-37); MEAN CORPUSCULAR VOLUME 82 fL (79-100); MONO # 0.7 x10^3/uL (0.0-1.1); MONO % 6 % (0-9); NEUT # 8.9 x10^3uL (1.8-7.7); NEUT % 74 % (31-73); PLATELET COUNT 315 x10^3/uL (140-400); RED BLOOD COUNT 4.98 x10^6/uL (3.50-5.40); RED CELL DISTRIBUTION WIDTH 14.8 % (11.5-14.5)
[2021-02-04 11:11] LABS: HEMOGLOBIN ISTAT 14.3 gm/dL; POTASSIUM ISTAT 3.1 mmol/L (3.5-5.0)
[2021-02-04] MEDS ORDERED: diphenhydrAMINE 50 MG/ML VIAL IVP ONE (12:15)
[2021-02-04] MEDS ORDERED: METOCLOPRAMIDE HCL 10 MG/2 ML VIAL. IVP ONE (12:15)
[2021-02-04] MEDS ORDERED: KETOROLAC 30 MG/ML VIAL. IVP ONE (12:15)
[2021-02-04] MEDS ORDERED: BENZ100C PO (12:29)
[2021-02-04] MEDS ORDERED: PRED-220 PO (12:29)
[2021-02-04 13:28] VITALS: BP 166/99
[2021-02-04 13:58] LABS: ALBUMIN 3.7 g/dL (3.4-5.0); CALCIUM 8.6 mg/dL (8.5-10.1); CREATININE 0.8 mg/dL (0.6-1.0); GFR 77.9; TOTAL BILIRUBIN 0.3 mg/dL (0.2-1.0); TOTAL PROTEIN 7.3 g/dL (6.4-8.2)
[2021-02-04 13:59] LABS: POTASSIUM 3.2 mmol/L (3.5-5.1)
== END 2021-02-04 13:33 | disposition home or self-care (01) ==
LOC: ER 10:04
DX: J41.0 Simple chronic bronchitis (principal); K21.9 Gastro-esophageal reflux disease without esophagitis; F17.200 Nicotine dependence, unspecified, uncomplicated; Z86.718 Personal history of other venous thrombosis and embolism; Z88.5 Allergy status to narcotic agent; Z88.1 Allergy status to other antibiotic agents
CPT/HCPCS: 36415; 71045; 80047; 80053; 85025; 96361; 96374; 96375; 99285; J1200; J1885; J2405; J2765; J7030

== ENCOUNTER 2021-10-26 16:25 | Emergency (ER) | payer OTHER ==
[~2021-10-26] VITALS: Ht 154.9 cm; Wt 71.2 kg
[~2021-10-26 16:25] MED LIST changes: +BENZ100C PO; +PRED-220 PO
[2021-10-26 16:35] VITALS: BP 187/97
--- NOTE | 2021-10-26 16:41 | PHYS DOC ---
Past History Past Medical History: Cancer, DVT, GERD, Other Past Surgical History: Other Additional Past Surgical Histo: CERVICAL CONE BX Smoking: Less than 1pk/day Alcohol Use: Rarely Drug Use: None Adult General Chief Complaint Chief Complaint: CHEST PAIN HPI HPI Patient is a 46-year-old female presenting via POV for chest pain. Onset was 30 minutes prior without any inciting event, trauma, ingestion, sick contact or travel. Nothing known makes better or worse. Patient describes pain as generalized chest pressure that is mostly central in nature without obvious radiation. Timing of symptoms has been waxing and waning since onset. Associated symptoms include nausea and increased shortness of breath. Patient does admit only change to baseline health was recent COVID-19 infection diag nosed 10 days prior, she is fully vaccinated and per CDC recommendations/guidelines has eclipsed her quarantine protocol. States her symptoms at time of diagnosis were upper respiratory in nature and only remaining symptom is feeling like she is in a fog with clear sputum production during cough which she reports has markedly improved since onset. Does admit she went back to work yesterday at daylight [employer] and has been more physically active than usual otherwise no other major change in recent health. Denies any personal history of cardiac disease. Is a former smoker and quit last month otherwise no alcohol or illicit drug abuse. Does disclose extensive cardiac history within family but reports all episodes of heart attacks and other heart related conditions arise later than 50 years old Review of Systems Review of Systems Fourteen body systems of review of systems have been reviewed. See HPI for pertinent positives and negative responses, other paredes all other systems are negative, non-pertinent or non-contributory Allergies Allergies Allergies Coded Allergies Type Severity Reaction Last Updated Verified codeine Allergy Unknown 02/04/21 Yes erythromycin base Allergy Unknown 02/04/21 Yes Physical Exam Physical Exam Constitutional: Well developed, well nourished, no acute distress, non-toxic appearance. HENT: Normocephalic, atraumatic, bilateral external ears normal, oropharynx moist, no oral exudates, nose normal. Eyes: PERRLA, EOMI, conjunctiva normal, no discharge. Neck: Normal range of motion, no tenderness, supple, no stridor. Cardiovascular: Heart rate regular, sinus rhythm, no murmurs rubs or gallops Lungs & Thorax: Bilateral breath sounds clear to auscultation Abdomen: Bowel sounds normal, soft, no tenderness, no masses, no pulsatile masses. Nonsurgical abdomen, no peritoneal signs Skin: Warm, dry, no erythema, no rash. Back: No tenderness, no CVA tenderness. Extremities: No tenderness, no cyanosis, no clubbing, ROM intact, no edema. Neurologic: Alert and oriented X 3, grossly normal motor & sensory function, no focal deficits noted. Psychologic: Anxious affect and mood Current Patient Data Vital Signs Vital Signs Date Time Temp Pulse Resp B/P (MAP) Pulse Ox O2 Delivery O2 Flow Rate FiO2 10/26/21 16:35 98.3 67 19 187/97 (127) 99 Room Air Lab Results Laboratory Tests Test 10/26/21 16:39 White Blood Count 10.0 x10^3/uL Red Blood Count 5.11 x10^6/uL Hemoglobin 13.9 g/dL Hematocrit 41.8 % Mean Corpuscular Volume 82 fL Mean Corpuscular Hemoglobin 27 pg Mean Corpuscular Hemoglobin Concent 33 g/dL Red Cell Distribution Width 15.4 % Platelet Count 313 x10^3/uL Neutrophils (%) (Auto) 61 % Lymphocytes (%) (Auto) 24 % Monocytes (%) (Auto) 7 % Eosinophils (%) (Auto) 7 % Basophils (%) (Auto) 1 % Neutrophils # (Auto) 6.1 x10^3uL Lymphocytes # (Auto) 2.4 x10^3/uL Monocytes # (Auto) 0.7 x10^3/uL Eosinophils # (Auto) 0.7 x10^3/uL Basophils # (Auto) 0.1 x10^3/uL Sodium Level 142 mmol/L Potassium Level 3.6 mmol/L Chloride Level 103 mmol/L Carbon Dioxide Level 26 mmol/L Anion Gap 13 Blood Urea Nitrogen 9 mg/dL Creatinine 0.8 mg/dL Estimated GFR (Cockcroft-Gault) 77.9 Glucose Level 102 mg/dL Calcium Level 9.1 mg/dL Troponin I High Sensitivity 6 ng/L OB-Zkx-R-Type Natriuretic Peptide 97 pg/mL Current Medications Medications (Trade) Dose Ordered Sig/Reed Route PRN Reason Start Time Stop Time Status Last Admin Dose Admin Azithromycin (Zithromax) 500 mg 1X ONCE PO 10/26/21 18:15 10/26/21 18:16 UNV EKG EKG EKG ordered and interpreted by myself at 1643 hrs. as sinus rhythm at 77 bpm, prolonged QTC at 482 otherwise unremarkable intervals, right axis deviation, poor waveform/artifact in lead II otherwise no g grossly obvious ischemic findings or STEMI, no prior to compare to Repeat EKG ordered and interpreted by myself at 1724 hrs. as sinus rhythm at 67 bpm, unremarkable intervals, no axis deviation, no obvious ischemic findings, no STEMI Radiology/Procedures Radiology/Procedures EXAM: AP View of the chest DATE: 10/26/2021 4:58 PM INDICATION: Reason: chest pain COMPARISON: 02/04/2021 04/23/2018 FINDINGS: The heart is not enlarged. Mediastinal and hilar contours are normal. Patchy opacities right lung base likely atelectasis or developing consolidation. No pleural effusion or pneumothorax. IMPRESSION: Patchy opacities right lung base likely atelectasis or developing consolidation. Imaging follow-up to resolution is recommended. Electronically signed by: David Young MD (10/26/2021 5:13 PM) [facility] Heart Score C/O Chest Pain: Yes HEART Score for Chest Pain: HEART Score for Chest Pain Response (Comments) Value History Slighlty/Non-Suspicious 0 ECG Normal 0 Age < 45 0 Risk Factors No Risk Factors 0 Troponin < Normal Limit 0 Total 0 Risk Factors: Risk Factors: DM, Current or recent (<one month) smoker, HTN, HLP, family history of CAD, obesity. Risk Scores: Risk Factors: DM, Current or recent (<one month) smoker, HTN, HLP, family history of CAD, obesity. Course & Med Decision Making Course & Med Decision Making ABCs unremarkable. I disclosed entirety of ER findings and discussed most likely diagnosis of atypical chest pain, likely related to right lower lobe pneumonia. Other diagnoses were discussed with patient such as ACS, pneumonia, pulmonary embolism and other potentially life-threatening diagnoses but all deemed less likely causes of patient's presentation. Joint decision to start antibiotic th erapy with close outpatient follow-up. Plan of care discussed at length with need for close outpatient follow-up to review today's ER visit stressed. Strict return precautions were also discussed at length with good understanding verbalized by patient. Patient voiced understanding and agreement with the plan. Patient knows to come back for repeat evaluation if concerning signs or symptoms present prior to outpatient follow-up. Hemodynamically stable, ambulatory and well-appearing at time of disposition. Mercedes Disclaimer Dragon Disclaimer This electronic medical record was generated, in whole or in part, using a voice recognition dictation system. PERC Rule for PE PERC Rule for PE Response (Comments) Value Age > 50: No 0 HR > 100: No 0 Sa02 on room air <95%: No 0 Unilateral leg swelling: No 0 Hemoptysis: No 0 Recent surgery or trauma: No 0 Prior PE or DVT: No 0 Hormone use: No 0 Total 0 Departure Departure: Impression: Primary Impression: Chest pain Additional Impressions: COVID-19 RLL pneumonia Disposition: HOME / SELF CARE / HOMELESS Condition: STABLE Referrals: JENNIE LOPEZ DO, MPH (PCP) Additional Instructions: You were seen for chest pain. Your workup did not show any acute abnormalities today, but does not indicate that you do not have underlying cardiovascular disease. You do need to follow up with your primary doctor and potentially a big data platform architect for further evaluation and treatment. As disclosed, you would benefit from an outpatient echocardiogram with consideration for outpatient stress test as well. These tests need to be ordered by her primary care physician. It was also disclosed that you have concerning findings for a developing right lower lobe pneumonia. You should return to the ED if you develop worsening chest pain, shortness of breath, fever, abnormal sweating, leg swelling, or any other new or concerning symptoms. Scripts Doxycycline Hyclate (DOXYCYCLINE HYCLATE) 100 Mg Tablet 1 TAB PO BID for PNA, #14 TAB Prov: DC CID MD 10/26/21 Azithromycin (AZITHROMYCIN TABLET) 250 Mg Tablet 250 MG PO DAILY for ANTI-BIOTIC, #4 TAB 0 Refills Prov: MARLON CHATMAN DO 10/26/21 Problem Qualifiers MARLON CHATMAN DO Oct 26, 2021 16:41
[2021-10-26 17:08] LABS: BASO # 0.1 x10^3/uL (0.0-0.2); BASO % 1 % (0-3); EOS # 0.7 x10^3/uL (0.0-0.7); EOS % 7 % (0-3); HEMATOCRIT 41.8 % (36.0-47.0); HEMOGLOBIN 13.9 g/dL (12.0-15.5); LYMPH # 2.4 x10^3/uL (1.0-4.8); LYMPH % 24 % (24-48); MEAN CORPUSCULAR HEMOGLOBIN 27 pg (25-35); MEAN CORPUSCULAR HGB CONC 33 g/dL (31-37); MEAN CORPUSCULAR VOLUME 82 fL (79-100); MONO # 0.7 x10^3/uL (0.0-1.1); MONO % 7 % (0-9); NEUT # 6.1 x10^3uL (1.8-7.7); NEUT % 61 % (31-73); PLATELET COUNT 313 x10^3/uL (140-400); RED BLOOD COUNT 5.11 x10^6/uL (3.50-5.40); RED CELL DISTRIBUTION WIDTH 15.4 % (11.5-14.5)
--- NOTE | 2021-10-26 17:15 | RAD ---
EXAM: AP View of the chest DATE: 10/26/2021 4:58 PM INDICATION: Reason: chest pain COMPARISON: 02/04/2021 04/23/2018 FINDINGS: The heart is not enlarged. Mediastinal and hilar contours are normal. Patchy opacities right lung base likely atelectasis or developing consolidation. No pleural effusion or pneumothorax. IMPRESSION: Patchy opacities right lung base likely atelectasis or developing consolidation. Imaging follow-up to resolution is recommended. Electronically signed by: David Young MD (10/26/2021 5:13 PM) DARLENE
[2021-10-26 17:17] LABS: CALCIUM 9.1 mg/dL (8.5-10.1); CREATININE 0.8 mg/dL (0.6-1.0); GFR 77.9; POTASSIUM 3.6 mmol/L (3.5-5.1)
--- NOTE | 2021-10-26 17:23 | EKG ---
[address] [address] Test Date: 2021-10-26 Test Time: 17:15:41 Pat Name: RYAN VAZQUEZ Department: Room: Gender: F Podiatric Surgeon: ANYI : 1975 Requested By: MARLON CHATAMN Order Number: [id number] Reading MD: Quincy Michael MD Measurements Intervals [place] Rate: 67 P: 56 MT: 160 QRS: 68 QRSD: 88 T: 60 QT: 432 QTc: 460 Interpretive Statements SINUS RHYTHM POOR R WAVE PROGRESSION Electronically Signed On 10-28-2021 8:23:56 QUALITY CONTROL by Quincy Michael MD
[2021-10-26] MEDS ORDERED: AZIT250T6 PO (18:04)
[2021-10-26] MEDS ORDERED: AZITHROMYCIN 250 MG TABLET. PO ONE (18:15)
[2021-10-26] MEDS ORDERED: DOXY100T PO (18:38)
[2021-10-26] MEDS ORDERED: DOXYCYCLINE HYCLATE 100 MG TABLET PO ONE (18:45)
== END 2021-10-26 18:54 | disposition home or self-care (01) ==
LOC: ER 16:25
DX: U07.1 COVID-19 (principal); J18.1 Lobar pneumonia, unspecified organism; K21.9 Gastro-esophageal reflux disease without esophagitis; F17.200 Nicotine dependence, unspecified, uncomplicated; Z86.718 Personal history of other venous thrombosis and embolism; Z88.5 Allergy status to narcotic agent; Z88.1 Allergy status to other antibiotic agents
CPT/HCPCS: 36415; 71045; 80048; 83880; 84484; 85025; 93005; 99285